=== PATIENT | female | born 1990 | race Caucasian/White ===

== ENCOUNTER → 2019-06-17 08:35 | Outpatient (CLI) | payer OTHER, SELFPAY ==
--- NOTE | 2019-06-17 | DI.US.S_ITS ---
PROCEDURE: US PELVIC COMPLETE INDICATIONS: OLIGOMENORRHEA, UNSPECIFIED TECHNIQUE: Real-time scanning was performed of the pelvic organs, with image documentation. Additional endovaginal scanning was necessary due to incomplete visualization of the adnexal and endometrial structures by transabdominal scanning. COMPARISON: None. FINDINGS: Transabdominal scanning: Limited scanning through the kidneys shows no hydronephrosis. No pathologic free abdominal or pelvic fluid. Endovaginal scanning: Uterus: Uterus is normal in size at 6.2 x 3.7 x 3.6 cm. The endometrium measures 8.0 mm in combined thickness. Ovaries: Prominent in size bilaterally measuring 4.1 x 2.9 x 3.2 cm on the right and 3.4 x 2.3 x 2.7 cm on the left. There are multiple sub-5 mm follicular cysts present bilaterally, with greater than 12 in each ovary. IMPRESSION: 1. Prominent ovarian size bilaterally with multiple small peripheral follicles. The findings are suggestive of polycystic ovarian syndrome in the appropriate clinical context. Dictated by: Jose Manuel WHALEN Interpreted: Luís Zapata MD on 06/17/2019 at 9:58 Approved by: Luís Zapata M.D. on 06/17/2019 at 16:35
== END ==
PROVIDERS: PCP Family Medicine; Visit Provider Family Medicine
DX: N91.5 Oligomenorrhea, unspecified (principal); N83.02 Follicular cyst of left ovary; N83.01 Follicular cyst of right ovary
CPT/HCPCS: 76830; 76856

== ENCOUNTER → 2020-06-14 12:48 | Outpatient (CLI) | payer OTHER, SELFPAY ==
[2020-06-14 17:25] LABS: Progesterone, Total 4.46 ng/mL
== END ==
PROVIDERS: PCP Specialist; Referring Provider Specialist; Visit Provider Specialist
DX: N97.0 Female infertility associated with anovulation (principal)
CPT/HCPCS: 36415; 84144

== ENCOUNTER → 2020-07-14 13:02 | Outpatient (CLI) | payer OTHER, SELFPAY ==
[2020-07-14 16:17] LABS: Progesterone, Total 9.85 ng/mL
== END ==
PROVIDERS: PCP Specialist; Referring Provider Specialist; Visit Provider Specialist
DX: Z31.69 Encounter for other general counseling and advice on procreation (principal); E28.2 Polycystic ovarian syndrome
CPT/HCPCS: 36415; 84144

== ENCOUNTER → 2020-08-16 12:41 | Outpatient (CLI) | payer OTHER, SELFPAY | PROVIDERS: PCP Specialist; Referring Provider Specialist; Visit Provider Specialist | DX: E28.2 Polycystic ovarian syndrome (principal); N97.0 Female infertility associated with anovulation | CPT/HCPCS: 36415; 84144 ==

== ENCOUNTER → 2020-09-14 07:08 | Outpatient (CLI) | payer OTHER, SELFPAY | PROVIDERS: Referring Provider Specialist; Visit Provider Specialist | DX: N97.0 Female infertility associated with anovulation (principal) | CPT/HCPCS: 36415; 84144 ==

== ENCOUNTER → 2020-10-15 11:17 | Outpatient (CLI) | payer OTHER, SELFPAY | PROVIDERS: PCP Specialist; Referring Provider Specialist; Visit Provider Specialist | DX: E28.2 Polycystic ovarian syndrome (principal); N97.0 Female infertility associated with anovulation | CPT/HCPCS: 36415; 84144 ==